=== PATIENT | female | born 1995 | race Two or more races ===

== ENCOUNTER 2019-10-04 09:20 | Inpatient (IN) | payer OTHER ==
[~2019-10-04] VITALS: Ht 154.9 cm; Wt 91.0 kg
[2019-10-04] MEDS ORDERED: MISOPROSTOL 200 MCG TABLET ONE (19:58)
[2019-10-04] MEDS ORDERED: NEWBORN KIT ONE (19:58)
[2019-10-04] MEDS ORDERED: LIDOCAINE 1%, 20ML ONE (19:58)
[2019-10-04 20:12] VITALS: BP 110/70
[2019-10-04] MEDS ORDERED: D5%-LACTATED RINGERS 1,000 ML IV SCH (20:17)
[2019-10-04] MEDS ORDERED: OXYTOCIN 30U/ 0.9% NaCL 500ML 500 ML IV ONE (20:17)
[2019-10-04] MEDS ORDERED: FENTANYL PF 100 MCG/2ML IV PRN (20:30)
[2019-10-04] MEDS ORDERED: MISOPROSTOL 25 MCG TABLET VG PRN (20:30)
[2019-10-04] MEDS ORDERED: PLEASE ENTER HEIGHT AND WEIGHT MC SCH (20:30)
[2019-10-04] MEDS ORDERED: FENTANYL PF 100 MCG/2ML IVPush PRN (20:30)
[2019-10-04] MEDS ORDERED: ONDANSETRON 2MG/ML, 2ML IVPush PRN (20:30)
[2019-10-04] MEDS ORDERED: TERBUTALINE 1 MG/ML, 1ML SQ PRN (20:30)
[2019-10-04 20:43] LABS: BASOPHILS # (AUTO) 0.15 x10^3/uL (0-0.1); BASOPHILS % (AUTO) 1 % (0-1); EOSINOPHILS # (AUTO) 0.12 x10^3/uL (0-0.4); EOSINOPHILS % (AUTO) 1 % (1-7); LYMPHOCYTES # (AUTO) 2.26 x10^3/uL (1-3.4); LYMPHOCYTES % (AUTO) 21 % (22-44); MD NO; MEAN CORPUSCULAR HEMOGLOBIN 29.6 pg (27.0-34.8); MEAN CORPUSCULAR HGB CONC 33.6 g/dL (32.4-35.8); MEAN CORPUSCULAR VOLUME 88.1 fL (80-100); MEAN PLATELET VOLUME 9.9 fL (7.4-10.4); MONOCYTES # (AUTO) 0.69 x10^3/uL (0.2-0.8); MONOCYTES % (AUTO) 6 % (2-9); NEUTROPHILS # (AUTO) 7.71 x10^3/uL (1.8-6.8); NEUTROPHILS % (AUTO) 71 % (42-75); PLATELET COUNT 186 x10^3/uL (130-400); RED BLOOD COUNT 4.36 x10^6/uL (3.82-5.3); RED CELL DISTRIBUTION WIDTH 15.8 % (9.6-15.2)
[2019-10-04] MEDS ORDERED: MISOPROSTOL 25 MCG TABLET ONE (21:02)
[2019-10-04] MEDS ORDERED: OXYTOCIN 30U/ 0.9% NaCL 500ML 500 ML IV PRN (23:57)
[2019-10-05] MEDS ORDERED: OXYTOCIN 30U/ 0.9% NaCL 500ML 500 ML ONE ×2 (00:45→09:52)
[2019-10-05] MEDS ORDERED: FENTANYL/BUPIV./NS/PF 250 ML EPIDCONT SCH ×2 (00:54→03:32)
[2019-10-05] MEDS ORDERED: LACTATED RINGERS 1,000 ML IVBOLUS PRN ×2 (01:00→04:00)
[2019-10-05] MEDS ORDERED: FENTANYL PF 500 MCG, BUPIVACAINE/PF 0.5%, 30ML 62.5 ML in SODIUM CHLORIDE 0.9% 177.5 ML EPIDCONT SCH (01:00)
[2019-10-05] MEDS ORDERED: FENTANYL PF 100 MCG/2ML ONE ×2 (01:22→02:31)
[2019-10-05] MEDS: LACTATED RINGERS 1,000 ML IV SCH ×2 (01:28→03:21)
[2019-10-05] MEDS ORDERED: FENTANYL/BUPIV./NS/PF 250 ML EPIDCONT ONE (02:25)
[2019-10-05] MEDS ORDERED: BUPIVACAINE 0.25% ONE (02:31)
[2019-10-05] MEDS ORDERED: LIDOCAINE/PF 1.5%-EPI 1:200K, 30ML ONE (02:35)
[2019-10-05] MEDS ORDERED: LACTATED RINGERS 1,000 ML IV SCH (03:32)
[2019-10-05] MEDS ORDERED: EPHEDRINE 50 MG/ML, 1ML IVPush PRN (04:00)
[2019-10-05] MEDS ORDERED: ONDANSETRON 2MG/ML, 2ML IVPush PRN (04:00)
[2019-10-05] MEDS ORDERED: VALA500T4 PO (06:47)
[2019-10-05] MEDS ORDERED: IBUPROFEN 600 MG TABLET ONE (09:51)
[2019-10-05] MEDS: OXYTOCIN 30U/ 0.9% NaCL 500ML 500 ML IV SCH ×2 (09:52→19:52)
[2019-10-05] MEDS ORDERED: MISOPROSTOL 200 MCG TABLET PR PRN (10:00)
[2019-10-05] MEDS ORDERED: OXYcodone IR 5MG TABLET PO PRN (10:00)
[2019-10-05] MEDS ORDERED: DOCUSATE 100 MG CAPSULE PO PRN (10:00)
[2019-10-05] MEDS ORDERED: ONDANSETRON 2MG/ML, 2ML IV PRN (10:00)
[2019-10-05] MEDS ORDERED: ACETAMINOPHEN 325 MG TABLET PO PRN (10:00)
[2019-10-05] MEDS ORDERED: SIMETHICONE 80 MG CHEW TAB PO PRN (10:00)
[2019-10-05] MEDS ORDERED: OXYcodone/APAP 5/325MG TABLET PO PRN (10:00)
[2019-10-05] MEDS: IBUPROFEN 600 MG TABLET PO PRN (10:02)
[2019-10-05 16:40] VITALS: BP 104/72
[2019-10-05 16:43] LABS: BASOPHILS # (AUTO) 0.02 x10^3/uL (0-0.1); BASOPHILS % (AUTO) 0 % (0-1); EOSINOPHILS # (AUTO) 0.02 x10^3/uL (0-0.4); EOSINOPHILS % (AUTO) 0 % (1-7); LYMPHOCYTES # (AUTO) 1.42 x10^3/uL (1-3.4); LYMPHOCYTES % (AUTO) 9 % (22-44); MD NO; MEAN CORPUSCULAR HEMOGLOBIN 29.3 pg (27.0-34.8); MEAN CORPUSCULAR HGB CONC 32.9 g/dL (32.4-35.8); MEAN PLATELET VOLUME 9.4 fL (7.4-10.4); MONOCYTES # (AUTO) 0.76 x10^3/uL (0.2-0.8); MONOCYTES % (AUTO) 5 % (2-9); NEUTROPHILS # (AUTO) 12.97 x10^3/uL (1.8-6.8); NEUTROPHILS % (AUTO) 85 % (42-75); PLATELET COUNT 168 x10^3/uL (130-400); RED BLOOD COUNT 3.82 x10^6/uL (3.82-5.3); RED CELL DISTRIBUTION WIDTH 15.1 % (9.6-15.2)
[2019-10-05 19:18] VITALS: BP 103/67
[2019-10-06 01:30] VITALS: BP 102/63
[2019-10-06] MEDS: OXYTOCIN 30U/ 0.9% NaCL 500ML 500 ML IV SCH (05:52)
[2019-10-06] MEDS: IBUPROFEN 600 MG TABLET PO PRN (06:21)
[2019-10-06 08:06] VITALS: BP 98/61
[2019-10-06] MEDS ORDERED: PRENATAL VIT/IRON/FA 1 EACH TABLET PO SCH (09:00)
[2019-10-06] MEDS ORDERED: IBUP-1222 PO (10:31)
== END 2019-10-06 12:20 | disposition home or self-care (01) | DRG 768 ==
LOC: LDIP 19:54 → 2NE 10-05 13:11 → 2NW 10-05 14:38
PROVIDERS: ADMIT Obstetrics & Gynecology; ATTEND Obstetrics & Gynecology
PROC: 10E0XZZ Delivery of Products of Conception, External Approach (ICD-10-PCS; principal; 2019-10-05)
PROC: 0KQM0ZZ Repair Perineum Muscle, Open Approach (ICD-10-PCS; 2019-10-05)
PROC: 3E0R3BZ Introduction of Anesthetic Agent into Spinal Canal, Percutaneous Approach (ICD-10-PCS; 2019-10-05)
PROC: 00HU33Z Insertion of Infusion Device into Spinal Canal, Percutaneous Approach (ICD-10-PCS; 2019-10-05)
PROC: 0UBGXZX Excision of Vagina, External Approach, Diagnostic (ICD-10-PCS; 2019-10-05)
DX: O70.1 Second degree perineal laceration during delivery (principal); Z37.0 Single live birth; O71.82 Other specified trauma to perineum and vulva; Z3A.40 40 weeks gestation of pregnancy
CPT/HCPCS: 36415; J3490; S0020; 85025; 86592; 86850; 86900; 88305; G0378; J3010; J2590; J7050; J7120